=== PATIENT | female | born 1945 | race American Indian/Alaskan Native ===

== ENCOUNTER 2016-05-31 19:09 | Emergency (ER) | payer MEDICARE ==
[2016-05-31] MEDS ORDERED: TYLENOL PO ONE (20:37)
[2016-05-31 21:06] LABS: Basophils % (Auto) 0.4 % (0.0-1.8); Hematocrit 39.5 % (30.3-42.9); Mean Corpuscular HGB Conc 33 % (30-34); Mean Corpuscular Hemoglobin 27 pg (28-32); Mean Corpuscular Volume 83 fl (79-97); Platelet Count 332 K/mm3 (140-440); Red Blood Count 4.74 M/mm3 (3.65-5.03); Red Cell Distribution Width 14.5 % (13.2-15.2); White Blood Count 16.5 K/mm3 (4.5-11.0)
[2016-05-31 21:24] LABS: Alanine Aminotransferase 32 units/L (7-56); Albumin 4.9 g/dL (3.9-5); Albumin/Globulin Ratio 1.4 %; Alkaline Phosphatase 84 units/L (35-129); BUN/Creatinine Ratio 12.22; Bilirubin,Total 0.4 mg/dL (0.1-1.2); Blood Urea Nitrogen 11 mg/dL (7-17); Calcium 9.7 mg/dL (8.4-10.2); Carbon Dioxide 24 mmol/L (22-30); Glucose 156 mg/dL (65-100); Lipase 34 units/L (13-60); Potassium 4.2 mmol/L (3.6-5.0); Sodium 138 mmol/L (137-145); Total Protein 8.5 g/dL (6.3-8.2)
[2016-05-31 21:38] LABS: Anion Gap 20 mmol/L
[2016-05-31 23:52] LABS: Bilirubin,Urine NEG (Negative); Blood,Urine NEG (Negative); Ketones,Urine NEG (Negative); Leukocyte Esterase,Urine TR (Negative); Nitrite,Urine NEG (Negative); Protein,Urine <15 mg/dL mg/dL (Negative); Urobilinogen,Urine < 2.0 mg/dL (<2.0)
[2016-06-01] MEDS ORDERED: ZITHROMAX PO ONE (03:58)
[2016-06-01] MEDS ORDERED: TORADOL IV ONE (04:01)
[2016-06-01] MEDS ORDERED: ZOFRAN IV ONE (04:01)
[2016-06-01] MEDS ORDERED: NACL 0.9% 1000 ML 1,000 ML IV ONE (04:01)
[2016-06-01] MEDS ORDERED: TESSALON PERLES PO ONE (04:01)
[2016-06-01] MEDS ORDERED: ROCEPHIN/NS 1 GM/50 ML 1 GM/50 ML BAG IV ONE (04:01)
[2016-06-01 05:47] VITALS: BP 117/68
--- NOTE | 2016-06-01 06:04 | Emergency Department Report ---
- General Chief Complaint: Abdominal Pain Stated Complaint: COUGHING Time Seen by Provider: 06/01/16 03:56 Source: patient Mode of arrival: Ambulatory Limitations: No Limitations - History of Present Illness Initial Comments: 70-year-old female with a past medical history of [id number] diabetes and hypertension presents to the hospital with complaints of headache, abdominal pain, nausea, vomiting, and cough. Started yesterday. Positive associated fever. A productive of clear sputum. Patient did not receive a flu shot. Patient presents generalized weakness and generalized abdominal soreness in addition to anterior chest wall pain with palpation and cough. Pain rated 7/ 10 overall. - Related Data Previous Rx's Medication Instructions Recorded Last Taken Type Azithromycin [Zithromax Z-SOTO] 1 dose PO DAILY 5 Days 06/01/16 Unknown Rx Benzonatate [Tessalon Perles] 100 mg PO Q8HR PRN #30 capsule 06/01/16 Unknown Rx Promethazine [Phenergan TAB] 25 mg PO Q6HR PRN #30 tab 06/01/16 Unknown Rx traMADol [Ultram 50 MG tab] 50 mg PO Q6HR PRN #20 tablet 06/01/16 Unknown Rx Allergies Allergy/AdvReac Type Severity Reaction Status Date / Time No Known Allergies Allergy Unverified 07/21/14 07:04 ED Review of Systems ROS: Stated complaint: COUGHING Other details as noted in HPI Comment: All other systems reviewed and negative Other: Constitutional: As per HPI Eyes: No eye pain visual changes ENT: No ear pain or throat pain Neck: Denies pain Respiratory: As per HPI CV: Chest pain GI: as per HPI : Denies dysuria Musculoskeletal: Denies back pain Skin: Denies rash, lesions, erythema Neurologic: Denies headache, numbness, weakness Psychiatric: Denies suicidal ideation, hallucinations ED Past Medical Hx - Past Medical History Hx Hypertension: Yes Hx Diabetes: Yes Additional medical history: hyperlipidemia - Surgical History Additional Surgical History: hysterectomy - Medications Home Medications: Home Medications Medication Instructions Recorded Confirmed Last Taken Type Azithromycin [Zithromax Z-SOTO] 1 dose PO DAILY 5 Days 06/01/16 Unknown Rx Benzonatate [Tessalon Perles] 100 mg PO Q8HR PRN #30 capsule 06/01/16 Unknown Rx Promethazine [Phenergan TAB] 25 mg PO Q6HR PRN #30 tab 06/01/16 Unknown Rx traMADol [Ultram 50 MG tab] 50 mg PO Q6HR PRN #20 tablet 06/01/16 Unknown Rx ED Physical Exam - General Limitations: No Limitations - Other Other exam information: General: No limitations, patient is alert in no acute distress Head exam: Atraumatic, normocephalic Eyes exam: Normal appearance, pupils equal reactive to light, extraocular movements intact ENT: Moist mucous membrane, normal oropharynx Neck exam: Normal inspection, full range of motion, no meningismus nontender Respiratory exam: Clear to auscultation bilateral, no wheezes, rales, crackles, frequent cough noted Cardiovascular: Tachycardic regular rhythm, reproducible sternal anterior chest wall tenderness Abdomen: Soft, nondistended, generalized abdominal tenderness, with normal bowel sounds, no rebound, or guarding Extremity: Full range of motion normal inspection no deformity Back: Normal Inspection, full range of motion, no tenderness Neurologic: Alert, oriented x3, cranial nerves intact, no motor or sensory deficit Psychiatric: normal affect, normal mood Skin: Warm, dry, intact ED Course Vital Signs 05/31/16 06/01/16 06/01/16 20:32 01:38 05:46 Temperature 100.9 F H 99.3 F Pulse Rate 126 H 110 H 96 H Respiratory 20 16 24 Rate Blood Pressure 151/89 Blood Pressure 140/59 117/68 [Left] O2 Sat by Pulse 100 100 98 Oximetry - Reevaluation(s) Reevaluation #1: 06/01/16 06:04 Heart rate and nausea improved with IV fluids. Patient treated with Rocephin, Zofran, normal saline, Tessalon Perles, and Toradol ED Medical Decision Making - Lab Data Result diagrams: 05/31/16 20:45 05/31/16 20:45 Lab Results 05/31/16 05/31/16 05/31/16 Range/Units 20:45 20:45 22:43 WBC 16.5 H (4.5-11.0) K/mm3 RBC 4.74 (3.65-5.03) M/mm3 Hgb 13.0 (10.1-14.3) gm/dl Hct 39.5 (30.3-42.9) % MCV 83 (79-97) fl MCH 27 L (28-32) pg MCHC 33 (30-34) % RDW 14.5 (13.2-15.2) % Plt Count 332 (140-440) K/mm3 Lymph % (Auto) 3.8 L (13.4-35.0) % Douglas % (Auto) 7.8 H (0.0-7.3) % Eos % (Auto) 0.0 (0.0-4.3) % Baso % (Auto) 0.4 (0.0-1.8) % Lymph # 0.6 L (1.2-5.4) K/mm3 Douglas # 1.3 H (0.0-0.8) K/mm3 Eos # 0.0 (0.0-0.4) K/mm3 Baso # 0.1 (0.0-0.1) K/mm3 Seg Neutrophils % 88.0 H (40.0-70.0) % Seg Neutrophils # 14.5 H (1.8-7.7) K/mm3 Sodium 138 (137-145) mmol/L Potassium 4.2 (3.6-5.0) mmol/L Chloride 98.0 (98-107) mmol/L Carbon Dioxide 24 (22-30) mmol/L Anion Gap 20 mmol/L BUN 11 (7-17) mg/dL Creatinine 0.9 (0.7-1.2) mg/dL Estimated GFR > 60 ml/min BUN/Creatinine Ratio 12.22 % Glucose 156 H (65-100) mg/dL Calcium 9.7 (8.4-10.2) mg/dL Total Bilirubin 0.4 (0.1-1.2) mg/dL AST 29 (5-40) units/L ALT 32 (7-56) units/L Alkaline Phosphatase 84 (35-129) units/L Total Protein 8.5 H (6.3-8.2) g/dL Albumin 4.9 (3.9-5) g/dL Albumin/Globulin Ratio 1.4 % Lipase 34 (13-60) units/L Urine Color Yellow (Yellow) Urine Turbidity Clear (Clear) Urine pH 7.0 (5.0-7.0) Ur Specific [place] 1.014 (1.003-1.030) Urine Protein <15 mg/dl (Negative) mg/dL Urine Glucose (UA) Neg (Negative) mg/dL Urine Ketones Neg (Negative) mg/dL Urine Blood Neg (Negative) Urine Nitrite Neg (Negative) Urine Bilirubin Neg (Negative) Urine Urobilinogen < 2.0 (<2.0) mg/dL Ur Leukocyte Esterase Tr (Negative) Urine WBC (Auto) 2.0 (0.0-6.0) /HPF Urine RBC (Auto) 0.0 (0.0-6.0) /HPF U Epithel Cells (Auto) 1.0 (0-13.0) /HPF - Radiology Data Radiology results: image reviewed (cxr: ? right infiltrate) - Medical Decision Making Patient be treated for pneumonia given question infiltrate and also symptomatic treatment for nausea or vomiting. Vital improved prior to discharge - Differential Diagnosis pneumonia, viral syndrome, influenza, gastroenteritis, UTI Critical Care Time: No Critical care attestation.: If time is entered above; I have spent that time in minutes in the direct care of this critically ill patient, excluding procedure time. ED Disposition Clinical Impression: Pneumonia, Vomiting, Diabetes Disposition: DISCHARGED TO HOME OR SELFCARE Is pt being admited?: No Does the pt Need Aspirin: No Condition: Stable Instructions: Abdominal Pain (ED), Community-acquired Pneumonia (ED), Diabetes Mellitus Type 2 in Adults (ED) Additional Instructions: Take the medication as prescribed. Return if symptoms worsen. Follow up very closely with your doctor Prescriptions: Azithromycin [Zithromax Z-SOTO] 1 dose PO DAILY 5 Days Benzonatate [Tessalon Perles] 100 mg PO Q8HR PRN #30 capsule PRN Reason: Cough Promethazine [Phenergan TAB] 25 mg PO Q6HR PRN #30 tab PRN Reason: Nausea traMADol [Ultram 50 MG tab] 50 mg PO Q6HR PRN #20 tablet PRN Reason: Pain Referrals: PRISCILLA ORTIZ PA [Primary Care Provider] - 2-3 Days Time of Disposition: 06:07
--- NOTE | 2016-06-01 09:03 | XRay Report ---
CHEST X-RAY, 2 VIEWS: HISTORY: Cough, shortness of breath. FINDINGS: No comparison at this facility. There is normal heart size and pulmonary vascularity. Linear scarring is identified in both upper lobes with mild superior retraction of the carolin. No evidence for infiltrate, pleural effusion or pneumothorax. The thoracic cage is grossly intact. IMPRESSION: No acute cardiopulmonary process. Linear scarring in the upper lobes with mild volume loss. This is a nonspecific finding but can be related to sarcoid among other chronic upper lobe diseases. Consider further evaluation with CT chest high resolution protocol, if further evaluation is needed.
== END 2016-06-01 06:52 | disposition home or self-care (01) ==
LOC: ED 19:09
DX: J18.9 Pneumonia, unspecified organism (principal); R11.10 Vomiting, unspecified; E11.9 Type 2 diabetes mellitus without complications; I10 Essential (primary) hypertension; Z79.4 Long term (current) use of insulin; Z90.710 Acquired absence of both cervix and uterus
CPT/HCPCS: 36415; 71020; 80053; 81001; 83690; 85025; 87400; 96365; 96366; 96375; 99284; J0696; J1885; J2405; J7030

== ENCOUNTER 2016-07-27 06:57 | Outpatient (CLI) | payer MEDICARE ==
--- NOTE | 2016-07-27 09:21 | Mammography Report ---
BILATERAL DIGITAL SCREENING MAMMOGRAM with CAD: 07/27/16 06:57:00 CLINICAL: Routine screening. COMPARISON:07/28/15 FINDINGS: The breasts are almost entirely fatty. No mass, architectural distortion or suspicious calcifications. IMPRESSION: No mammographic evidence of malignancy. BI-RADS CATEGORY: 1 - - Negative RECOMMENDATION: Routine mammographic screening in one year. COMMENT: Patient follow-up letters are generated by our [employer] application.
== END 2016-07-27 06:58 | disposition home or self-care (01) ==
LOC: MAMMO 06:57
PROVIDERS: ATTEND Physician Assistant
DX: Z12.31 Encounter for screening mammogram for malignant neoplasm of breast (principal)
CPT/HCPCS: 77067; G0202

== ENCOUNTER 2017-07-30 07:13 | Outpatient (CLI) | payer MEDICARE ==
--- NOTE | 2017-07-30 10:44 | Mammography Report ---
BILATERAL DIGITAL SCREENING MAMMOGRAM with CAD: 07/30/17 07:13:00 CLINICAL: Routine screening. COMPARISON:07/27/16 FINDINGS: The breasts are almost entirely fatty. A right asymmetry with architectural distortion on the CC view requires additional imaging.No suspicious calcifications.The left breast is negative. IMPRESSION: Right asymmetry and architectural distortion requiring further workup. BI-RADS CATEGORY: 0 -- Additional Imaging Evaluation Required RECOMMENDATION: Recall for a right CC spot compression view and right breast ultrasound if needed. ACR BI-RADS MAMMOGRAPHIC CODES: 0 = Needs additional imaging evaluation; 1 = Negative; 2 = Benign; 3 = Probably benign; 4 = Suspicious; 5 = Malignant; 6 = Known biopsy-proven malignancy COMMENT: 1. Dense breast tissue, i.e., adenosis, fibrocystic changes, etc., may obscure an underlying neoplasm. 2. Approximately 10% of cancers are not detected with mammography. 3. A negative mammography report should not delay biopsy if a clinically suspicious mass is present. COMMENT: Patient follow-up letters are generated via our [employer] application.
== END 2017-07-30 07:14 | disposition home or self-care (01) ==
LOC: MAMMO 07:13
PROVIDERS: ATTEND Family Medicine
DX: Z12.31 Encounter for screening mammogram for malignant neoplasm of breast (principal)
CPT/HCPCS: 77067

== ENCOUNTER 2017-08-06 10:29 | Outpatient (CLI) | payer MEDICARE ==
--- NOTE | 2017-08-06 10:56 | Mammography Report ---
RIGHT DIGITAL DIAGNOSTIC MAMMOGRAM : 08/06/17 10:29:00 CLINICAL: Recalled for asymmetry. COMPARISON:07/30/17 screening FINDINGS: Additional mammographic views were performed and are negative. IMPRESSION: Negative Mammogram. BI-RADS CATEGORY: 1 -- Negative RECOMMENDATION: Routine mammographic screening in one year. ACR BI-RADS MAMMOGRAPHIC CODES: 0 = Needs additional imaging evaluation; 1 = Negative; 2 = Benign; 3 = Probably benign; 4 = Suspicious; 5 = Malignant; 6 = Known biopsy-proven malignancy COMMENT: 1. Dense breast tissue, i.e., adenosis, fibrocystic changes, etc., may obscure an underlying neoplasm. 2. Approximately 10% of cancers are not detected with mammography. 3. A negative mammography report should not delay biopsy if a clinically suspicious mass is present. COMMENT: Patient follow-up letters are generated via our [employer] application.
== END 2017-08-06 10:30 | disposition home or self-care (01) ==
LOC: MAMMO 10:29
PROVIDERS: ATTEND Family Medicine
DX: R92.8 Other abnormal and inconclusive findings on diagnostic imaging of breast (principal)

== ENCOUNTER 2018-07-31 10:12 | Outpatient (CLI) | payer MEDICARE ==
--- NOTE | 2018-07-31 10:53 | Mammography Report ---
Bilateral mammogram: Compared to 08/06/17 and 07/30/17. CAD study utilized. Findings: Dominance of adipose tissue bilaterally. No microcalcification or mass. Benign axillary nodes. Impression: Benign findings. Annual followup recommended. BI-RADS CATEGORY: 2 = Benign ACR BI-RADS MAMMOGRAPHIC CODES: 0 = Needs additional imaging evaluation; 1 = Negative; 2 = Benign; 3 = Probably benign; 4 = Suspicious; 5 = Malignant; 6 = Known biopsy-proven malignancy COMMENT: 1. Dense breast tissue, i.e., adenosis, fibrocystic changes, etc., may obscure an underlying neoplasm. 2. Approximately 10% of cancers are not detected with mammography. 3. A negative mammography report should not delay biopsy if a clinically suspicious mass is present. COMMENT: Patient follow-up letters are generated in [employer].
--- NOTE | 2018-07-31 10:55 | Mammography Report ---
BONE DENSITY STUDY: DEFINITIONS: BMD = Bone Mineral Density T-score = BMD related to mean peak bone mass of young adult (mean expressed in Standard Deviation) Z-score = Age matched BMD expressed in SD World Health Organization (WHO) Diagnostic Criteria Normal T-score > -1 SD Osteopenia T-score between -1 and -2.4 SD Osteoporosis T-score -2.5 SD or below FINDINGS: The weighted average BMD of lumbar spine L1-L4 is 0.836 with a T-score of -1.9. The weighted average BMD of hip is 0.748 with a T-score of -1.6.. IMPRESSION: The patient's T-score is diagnostic for osteopenia and average relative risk for fracture. NOTE: BMD is not the only risk factor for fracture; also consider factors such as the patient's age, risk of falling, previous osteoporotic fracture, family history of osteoporotic fractures, current smoker, and low body weight. Rand's triangle is a region of interest in femur, predominantly of trabecular bone. It is not a true anatomic site, and ISCD does not recommend its use clinically.
== END 2018-07-31 10:13 | disposition home or self-care (01) ==
LOC: MAMMO 10:12
PROVIDERS: ATTEND Family Medicine
DX: Z12.31 Encounter for screening mammogram for malignant neoplasm of breast (principal); M81.0 Age-related osteoporosis without current pathological fracture; I10 Essential (primary) hypertension
CPT/HCPCS: 77067; 77080

== ENCOUNTER 2020-09-01 10:27 | Outpatient (CLI) | payer MEDICARE ==
--- NOTE | 2020-09-01 11:49 | Mammography Report ---
DIGITAL SCREENING MAMMOGRAM WITH CAD, 09/01/2020 INDICATION: Routine screening mammography. TECHNIQUE: Digital bilateral 2D mammography was obtained in the craniocaudal and mediolateral obliq ue projections. This examination was interpreted with the benefit of Computer-Aided Detection analysi s. COMPARISON: 07/31/2018. FINDINGS: Breast Density: There are scattered areas of fibroglandular density. There is no evidence of dominant mass, suspicious calcifications or architectural distortion in eithe r breast. IMPRESSION: Follow up recommendation: Routine yearly BI-RADS Category 1: Negative. A "normal" or negative report should not discourage follow up or biopsy of a clinically significant f inding. A written summary of these findings will be mailed to the patient. The patient will be entered into a mammography reporting system which will generate a reminder letter for the patient's next appointmen t at the appropriate interval. The [employer] recommends yearly mammograms starting at age 40 and continuing as l evangelist as a woman is in good health. Breast MRI is recommended for women with an approximate 20-25% or greater lifetime risk of breast cancer, including women with a strong family history of breast or ova cj cancer or who have been treated for Hodgkin's disease. Signer Name: Trung Valentino MD Signed: 09/01/2020 11:44 AM Workstation Name: [id number]
--- NOTE | 2020-09-01 12:10 | Mammography Report ---
DEXA BONE DENSITY SCAN INDICATION / CLINICAL INFORMATION: OSTEOPENIA. 75 years Female COMPARISON: 07/31/2018 LUMBAR SPINE, L1-L4: - Bone mineral density (BMD) = 0.856 g/cm2. - T-score = -1.7 - Z-score = -0.1 Change (%) since most recent prior (if available): 2.4% increase LEFT HIP, NECK : - Bone mineral density (BMD) = 0.608 g/cm2. - T-score = -2.2 - Z-score = -0.9 Change (%) since most recent prior (if available): 1.5% decrease IMPRESSION: 1. WHO Classification: Osteopenia. Fracture Risk: Increased. Note: 10-Year Fracture Risk (FRAX) not reported. This DEXA unit lacks FRAX functionality. BMD Reporting Guidelines (ISCD, 2015) BMD Reporting in Postmenopausal Women and in Men Age 50 and Older - T-scores are preferred. - The WHO densitometric classification is applicable. BMD Reporting in Females Prior to Menopause and in Males Younger Than Age 50 - Z-scores, not T-scores, are preferred. This is particularly important in children. - A Z-score of -2.0 or lower is defined as below the expected range for age, and a Z-score above -2.0 is within the expected range for age. - Osteoporosis cannot be diagnosed in men under age 50 on the basis of BMD alone. - The WHO diagnostic criteria may be applied to women in the menopausal transition. http://www.iscd.org/official-positions/9774-luao-seijeafj-positions-adult/ Signer Name: Jorge Mora MD Signed: 09/01/2020 12:05 PM Workstation Name: [id number]
== END 2020-09-01 10:28 | disposition home or self-care (01) ==
LOC: MAMMO 10:27
PROVIDERS: ATTEND Family Medicine
DX: Z12.31 Encounter for screening mammogram for malignant neoplasm of breast (principal); Z13.820 Encounter for screening for osteoporosis; C50.411 Malignant neoplasm of upper-outer quadrant of right female breast; C50.811 Malignant neoplasm of overlapping sites of right female breast; M85.88 Other specified disorders of bone density and structure, other site; N64.89 Other specified disorders of breast
CPT/HCPCS: 77067; 77080

== ENCOUNTER 2020-10-14 10:06 | Emergency (ER) | payer MEDICARE ==
--- NOTE | 2020-10-14 11:20 | Emergency Department Report ---
HPI - General Chief Complaint: GI Bleed Time Seen by Provider: 10/14/20 11:03 - HPI HPI: This is a 75-year-old -[place] female presents to the emergency department from home with complaint of some rectal bleeding and some right-sided abdominal, flank, and back pains. Patient says that she does have some history of irregular bowel movements in which she says that only a small amount of the stool comes out initially, and the patient has to get up and walk around in order to further clear her bowels. Over this time the patient has noticed some small red blood sometimes on the toilet paper and sometimes a small amount in the toilet bowl. She has been following with her primary care physician, Dr. Carlos Hay, but they felt that it was consistent with hemorrhoids as the patient does have a history of hemorrhoids in the past. Over the past 2 days, the patient has been having right-sided abdominal and flank pain that radiates towards her back. Currently it is about a 2 out of 10 in intensity. No known aggravating or alleviating factors. Yesterday the patient had an episode in which she had dark stool with some areas of bright red blood. This morning, when she had a bowel movement, she said that the toilet bowl was full of bright red blood. She denies any rectal pain. She denies any fever, chest pain, shortness of breath. She has not taken anything for symptoms prior to presentation. She also has a past medical history of diabetes, hypertension, hyperlipidemia and has a history of a previous hysterectomy. The patient last had a colonoscopy about 1 to 2 years ago and says it was normal at that time. ED Past Medical Hx - Past Medical History Hx Hypertension: Yes Hx Diabetes: Yes Additional medical history: hyperlipidemia - Surgical History Additional Surgical History: hysterectomy - Social History Smoking Status: Never Smoker Substance Use Type: None - Medications Home Medications: Home Medications Medication Instructions Recorded Confirmed Last Taken Type Azithromycin [Zithromax Z-SOTO] 1 dose PO DAILY 5 Days tab 06/01/16 Unknown Rx Benzonatate [Tessalon Perles] 100 mg PO Q8HR PRN #30 capsule 06/01/16 Unknown Rx Promethazine [Phenergan TAB] 25 mg PO Q6HR PRN #30 tab 06/01/16 Unknown Rx traMADoL [Ultram 50 MG tab] 50 mg PO Q6HR PRN #20 tablet 06/01/16 Unknown Rx ED Review of Systems ROS: Stated complaint: BLEEDING PAIN RT SIDE Other details as noted in HPI Comment: All other systems reviewed and negative Constitutional: denies: chills, fever Eyes: denies: eye pain, vision change ENT: denies: ear pain, throat pain Respiratory: denies: cough, shortness of breath Cardiovascular: denies: chest pain, palpitations Gastrointestinal: abdominal pain, other (Rectal bleeding). denies: nausea, vomiting Genitourinary: denies: dysuria, hematuria Musculoskeletal: back pain. denies: arthralgia Skin: denies: rash, lesions Neurological: denies: headache, weakness Physical Exam - Physical Exam Vital Signs: Vital Signs 10/14/20 10:20 Temperature 98.1 F Pulse Rate 109 H Respiratory 18 Rate Blood Pressure 133/77 O2 Sat by Pulse 99 Oximetry Physical Exam: GENERAL: The patient is well-developed well-nourished. HENT: Normocephalic. Atraumatic. Patient has moist mucous membranes. EYES: Extraocular motions are intact. NECK: Supple. Trachea is midline. CHEST/LUNGS: Clear to auscultation. There is no respiratory distress noted. HEART/CARDIOVASCULAR: Regular. There is no tachycardia. There is no murmur. ABDOMEN: Abdomen is soft. There is no tenderness to palpation of the abdomen or flank. No guarding. Patient has normal bowel sounds. There is no abdominal distention. SKIN: Skin is warm and dry. NEURO: The patient is awake, alert, and oriented. The patient is cooperative. The patient has no focal neurologic deficits. Normal speech. MUSCULOSKELETAL: There is no tenderness or deformity. There is no limitation range of motion. BACK: No CVA tenderness to palpation. RECTAL: There is a nonthrombosed external hemorrhoid at the 7 o'clock position. No gross hematochezia. No stool obtained/available for guaiac testing. ED Course Vital Signs 10/14/20 10:20 Temperature 98.1 F Pulse Rate 109 H Respiratory 18 Rate Blood Pressure 133/77 O2 Sat by Pulse 99 Oximetry - Reevaluation(s) Reevaluation #1: 10/14/20 13:46 Rectal examination done with nurse Norma Sandoval at bedside to assist in assistant tennis professional. ED Medical Decision Making - Lab Data Result diagrams: 10/14/20 10:34 10/14/20 10:40 Lab Results 10/14/20 10/14/20 10/14/20 Range/Units 10:34 10:40 10:40 WBC 6.8 (4.5-11.0) K/mm3 RBC 4.08 (3.65-5.03) M/mm3 Hgb 12.3 (10.1-14.3) gm/dl Hct 36.2 (30.3-42.9) % MCV 89 (79-97) fl MCH 30 (28-32) pg MCHC 34 (30-34) % RDW 14.2 (13.2-15.2) % Plt Count 305 (140-440) K/mm3 Lymph % (Auto) 27.8 (13.4-35.0) % [place] % (Auto) 6.2 (0.0-7.3) % Eos % (Auto) 0.1 (0.0-4.3) % Baso % (Auto) 0.9 (0.0-1.8) % Lymph # (Auto) 1.9 (1.2-5.4) K/mm3 [place] # (Auto) 0.4 (0.0-0.8) K/mm3 Eos # (Auto) 0.0 (0.0-0.4) K/mm3 Baso # (Auto) 0.1 (0.0-0.1) K/mm3 Seg Neutrophils % 65.0 (40.0-70.0) % Seg Neutrophils # 4.4 (1.8-7.7) K/mm3 PT 13.6 (12.2-14.9) Sec. INR 0.99 (0.87-1.13) APTT 31.3 (24.2-36.6) Sec. Sodium 142 (137-145) mmol/L Potassium 4.4 (3.6-5.0) mmol/L Chloride 100.8 (98-107) mmol/L Carbon Dioxide 29 (22-30) mmol/L Anion Gap 17 mmol/L BUN 18 H (7-17) mg/dL Creatinine 1.0 (0.6-1.2) mg/dL Estimated GFR > 60 ml/min BUN/Creatinine Ratio 18 % Glucose 127 H (65-100) mg/dL Calcium 10.3 H (8.4-10.2) mg/dL Total Bilirubin 0.30 (0.1-1.2) mg/dL AST 20 (5-40) units/L ALT 12 (7-56) units/L Alkaline Phosphatase 63 (35-129) units/L Total Protein 8.6 H (6.3-8.2) g/dL Albumin 4.8 (3.9-5) g/dL Albumin/Globulin Ratio 1.3 % Urine Color (Yellow) Urine Turbidity (Clear) Urine pH (5.0-7.0) Ur Specific [place] (1.003-1.030) Urine Protein (Negative) mg/dL Urine Glucose (UA) (Negative) mg/dL Urine Ketones (Negative) mg/dL Urine Blood (Negative) Urine Nitrite (Negative) Urine Bilirubin (Negative) Urine Urobilinogen (<2.0) mg/dL Ur Leukocyte Esterase (Negative) Urine WBC (Auto) (0.0-6.0) /HPF Urine RBC (Auto) (0.0-6.0) /HPF U Epithel Cells (Auto) (0-13.0) /HPF Urine Bacteria (Auto) (Negative) /HPF Urine Mucus /HPF // Range/Units 12:35 WBC (4.5-11.0) K/mm3 RBC (3.65-5.03) M/mm3 Hgb (10.1-14.3) gm/dl Hct (30.3-42.9) % MCV (79-97) fl MCH (28-32) pg MCHC (30-34) % RDW (13.2-15.2) % Plt Count (140-440) K/mm3 Lymph % (Auto) (13.4-35.0) % [place] % (Auto) (0.0-7.3) % Eos % (Auto) (0.0-4.3) % Baso % (Auto) (0.0-1.8) % Lymph # (Auto) (1.2-5.4) K/mm3 [place] # (Auto) (0.0-0.8) K/mm3 Eos # (Auto) (0.0-0.4) K/mm3 Baso # (Auto) (0.0-0.1) K/mm3 Seg Neutrophils % (40.0-70.0) % Seg Neutrophils # (1.8-7.7) K/mm3 PT (12.2-14.9) Sec. INR (0.87-1.13) APTT (24.2-36.6) Sec. Sodium (137-145) mmol/L Potassium (3.6-5.0) mmol/L Chloride (98-107) mmol/L Carbon Dioxide (22-30) mmol/L Anion Gap mmol/L BUN (7-17) mg/dL Creatinine (0.6-1.2) mg/dL Estimated GFR ml/min BUN/Creatinine Ratio % Glucose (65-100) mg/dL Calcium (8.4-10.2) mg/dL Total Bilirubin (0.1-1.2) mg/dL AST (5-40) units/L ALT (7-56) units/L Alkaline Phosphatase (35-129) units/L Total Protein (6.3-8.2) g/dL Albumin (3.9-5) g/dL Albumin/Globulin Ratio % Urine Color Yellow (Yellow) Urine Turbidity Clear (Clear) Urine pH 6.0 (5.0-7.0) Ur Specific [place] 1.013 (1.003-1.030) Urine Protein <15 mg/dl (Negative) mg/dL Urine Glucose (UA) Neg (Negative) mg/dL Urine Ketones Neg (Negative) mg/dL Urine Blood Neg (Negative) Urine Nitrite Neg (Negative) Urine Bilirubin Neg (Negative) Urine Urobilinogen < 2.0 (<2.0) mg/dL Ur Leukocyte Esterase Sm (Negative) Urine WBC (Auto) 2.0 (0.0-6.0) /HPF Urine RBC (Auto) 2.0 (0.0-6.0) /HPF U Epithel Cells (Auto) 3.0 (0-13.0) /HPF Urine Bacteria (Auto) 1+ (Negative) /HPF Urine Mucus Few /HPF - Radiology Data Radiology results: report reviewed, image reviewed interpreted by me: Chest x-ray does not show any acute process. There are no pleural effusions, obvious pneumonia and there is no pneumothorax. Abdominal x-ray shows nonspecific nonobstructive bowel gas. No free air. X-ray of the right hip does not show any fracture, dislocation, or any acute process. - Medical Decision Making This patient presents to the emergency department with a complaint of some rectal bleeding that has been going on intermittently for a long time but worsened over the past 1 to 2 days. It is associated with some right-sided abdominal and flank pain with some radiation towards the back. However, at the time of my examination there is no reproducible abdominal or back pain to palpation. The abdomen is soft, nondistended and nontoxic in appearance. Rectal examination shows a nonthrombosed hemorrhoid at the 7 o'clock position. No melena. No gross hematochezia. There was not any stool obtainable for g uaiac testing. Patient's labs have been mostly unremarkable. Hemoglobin is at 12.3 which is consistent with previous visits and does not represent any significant anemia or require transfusion. Vital signs have been reassuring throughout her ED course including being afebrile. She was reevaluated multiple times over multiple hours and has remained stable throughout her ED course. For all these reasons she appears safe for discharge home at this time. She has been given outpatient referral for gastroenterology. She will return to the emergency department with any worsening of her symptoms or with any acute distress. Critical Care Time: No Critical care attestation.: If time is entered above; I have spent that time in minutes in the direct care of this critically ill patient, excluding procedure time. ED Disposition Clinical Impression: Rectal bleeding Disposition: DC-01 TO HOME OR SELFCARE Is pt being admited?: No Condition: Stable Instructions: Rectal Bleeding Additional Instructions: Please follow-up with your primary care physician in the next few days. I have given you a referral for a local air commodore, Dr. Holt, to follow-up regarding your rectal bleeding. Return to the emergency department with any worsening of your symptoms, new or concerning symptoms not addressed during this current emergency department visit, or with any acute distress. Referrals: PRIMARY CARE, [Primary Care Provider] - 2-3 Days CB HOLT MD [Staff Physician] - 2-3 Days Forms: Accompanied Note Time of Disposition: 13:36
[2020-10-14 11:51] LABS: Basophils # (Auto) 0.1 K/mm3 (0.0-0.1); Basophils % (Auto) 0.9 % (0.0-1.8); Eosinophils % (Auto) 0.1 % (0.0-4.3); Hematocrit 36.2 % (30.3-42.9); Hemoglobin 12.3 gm/dl (10.1-14.3); Lymphocytes # (Auto) 1.9 K/mm3 (1.2-5.4); Lymphocytes % (Auto) 27.8 % (13.4-35.0); Mean Corpuscular HGB Conc 34 % (30-34); Mean Corpuscular Volume 89 fl (79-97); Monocytes # (Auto) 0.4 K/mm3 (0.0-0.8); Monocytes % (Auto) 6.2 % (0.0-7.3); Platelet Count 305 K/mm3 (140-440); Red Blood Count 4.08 M/mm3 (3.65-5.03); Red Cell Distribution Width 14.2 % (13.2-15.2)
--- NOTE | 2020-10-14 11:51 | XRay Report ---
CHEST AND ABDOMINAL SERIES HISTORY: Right-sided abdominal and flank pain. COMPARISON: Chest x-ray 05/31/2016. Chest one view: Heart size is normal. Upper zone scarring and volume loss remains. No acute infiltrat e. Two-view abdomen: Gas is scattered throughout the abdomen in a nonobstructive fashion. No free air. M ultiple right-sided calcifications are favored to be phleboliths. Localized sclerotic change is present at the superior right acetabulum. Dedicated right hip films are recommended. Signer Name: Trung Valentino MD Signed: 10/14/2020 11:47 AM Workstation Name: [id number]
[2020-10-14 11:57] LABS: Alanine Aminotransferase 12 units/L (7-56); Albumin 4.8 g/dL (3.9-5); BUN/Creatinine Ratio 18; Blood Urea Nitrogen 18 mg/dL (7-17); Calcium 10.3 mg/dL (8.4-10.2); Hemolysis Index 18
[2020-10-14 12:01] LABS: INR 0.99 (0.87-1.13)
[2020-10-14 12:02] LABS: Partial Thromboplastin Time 31.3 Sec. (24.2-36.6)
--- NOTE | 2020-10-14 12:32 | XRay Report ---
Pelvis and right hip 2 views INDICATION: Sclerotic lesion FINDINGS: There is sclerosis within the right superior acetabulum. Joint space narrowing is seen in b ilateral hips. Sacrum and sacroiliac joints appear normal. IMPRESSION: Sclerosis/sclerotic lesion within the right superior acetabulum. Findings could be secondary to degen erative change however sclerotic lesion could also have this appearance. A bone scan and follow-up co uld be performed. Signer Name: Chalo Andersen MD Signed: 10/14/2020 12:27 PM Workstation Name: [id number]
[2020-10-14 13:00] LABS: Bacteria,Urine 1+ /HPF (Negative); Bilirubin,Urine NEG (Negative); Blood,Urine NEG (Negative); Color,Urine Yellow (Yellow); Mucus,Urine FEW /HPF; Protein,Urine <15 mg/dL mg/dL (Negative); Urobilinogen,Urine < 2.0 mg/dL (<2.0)
[2020-10-14 14:13] VITALS: BP 148/77
== END 2020-10-14 14:15 | disposition home or self-care (01) ==
LOC: ED 10:06
DX: K62.5 Hemorrhage of anus and rectum (principal); I10 Essential (primary) hypertension; E11.9 Type 2 diabetes mellitus without complications; Z90.710 Acquired absence of both cervix and uterus; Z79.2 Long term (current) use of antibiotics; Z79.899 Other long term (current) drug therapy
CPT/HCPCS: 36415; 74022; 80053; 81001; 85025; 85610; 85730; 99284

== ENCOUNTER 2021-09-02 08:11 | Outpatient (CLI) | payer MEDICARE | END 2021-09-02 08:12 | disposition home or self-care (01) | LOC: MAMMO 08:11 | PROVIDERS: ATTEND Physician Assistant | DX: Z12.31 Encounter for screening mammogram for malignant neoplasm of breast (principal) | CPT/HCPCS: 77067 ==